=== PATIENT | female | born 1940 | race African-American/Black ===

== ENCOUNTER 2018-10-28 18:07 | Emergency (ER) | payer MEDICARE, OTHER ==
[~2018-10-28] VITALS: Ht 160 cm; Wt 72.0 kg
[~2018-10-28 18:07] MED LIST: CIPR500T87 PO; GABA300C10 PO; OMEP-110 PO; UNKNOWN BP MED PO
[2018-10-28] MEDS ORDERED: ACETAMINOPHEN 500 MG TABLET PO ONE (18:30)
[2018-10-28] MEDS ORDERED: ACETAMINOPHEN 500 MG TABLET ONE (18:48)
[2018-10-28 18:55] LABS: ALBUMIN 3.6 g/dL (3.4-5.0); ANION GAP 6 mmol/L (5-15); CALCIUM 8.5 mg/dL (8.5-10.1); CHLORIDE 110 mmol/L (98-107); CREATININE 1.39 mg/dL (0.55-1.02)
[2018-10-28 18:58] LABS: MEAN CORPUSCULAR HEMOGLOBIN 23.6 pg (27.0-34.8); MEAN CORPUSCULAR HGB CONC 31.1 g/dL (32.4-35.8); PLATELET COUNT 259 x10^3/uL (130-400); RED BLOOD COUNT 4.76 x10^6/uL (3.82-5.3); RED CELL DISTRIBUTION WIDTH 16.9 % (9.6-15.2)
--- NOTE | 2018-10-28 19:03 | NUR ---
Assumed care of patient. C/O acute on chronic BLE pain, left worse than right. SO at bedside. Will continue to monitor.
[2018-10-28 19:13] LABS: CULTURE INDICATED? NO; MICROSCOPIC NOT IND
[2018-10-28 19:19] LABS: BASOPHILS # (AUTO) 0.01 x10^3/uL (0-0.1); BASOPHILS % (AUTO) 0 % (0-1); EOSINOPHILS # (AUTO) 0.05 x10^3/uL (0-0.4); EOSINOPHILS % (AUTO) 1 % (1-7); LYMPHOCYTES # (AUTO) 0.87 x10^3/uL (1-3.4); LYMPHOCYTES % (AUTO) 14 % (22-44); MD SCAN; MONOCYTES # (AUTO) 0.45 x10^3/uL (0.2-0.8); MONOCYTES % (AUTO) 7 % (2-9); NEUTROPHILS # (AUTO) 4.76 x10^3/uL (1.8-6.8); NEUTROPHILS % (AUTO) 78 % (42-75)
[2018-10-28 19:48] VITALS: BP 138/94
--- NOTE | 2018-10-28 19:48 | NUR ---
Patient/Caregiver given discharge instructions and they have confirmed that they understand the instructions. Patient ambulatory with steady gait.
== END 2018-10-28 19:50 | disposition home or self-care (01) ==
LOC: ED 19:15
DX: M79.652 Pain in left thigh (principal); M79.651 Pain in right thigh; M79.662 Pain in left lower leg; M79.661 Pain in right lower leg; K21.9 Gastro-esophageal reflux disease without esophagitis; R25.2 Cramp and spasm; E78.00 Pure hypercholesterolemia, unspecified; I10 Essential (primary) hypertension; F17.200 Nicotine dependence, unspecified, uncomplicated
CPT/HCPCS: 36415; 80048; 81003; 82040; 85025; 93005; 99284